=== PATIENT | female | born 1995 ===

== ENCOUNTER 2022-10-31 14:11 | Day surgery (SDC) | payer BC ==
[2022-10-31 14:40] VITALS: BMI 38.9
[2022-10-31] MEDS ORDERED: Acetaminophen 500 MG TAB PO SCH (15:30)
[2022-10-31 15:50] LABS: #Basophils 0.1 10x3/uL (0.0-0.2); #Eosinphils 0.3 10x3/uL (0.0-0.5); #Monocytes 0.4 10x3/uL (0.0-1.1); #Neutrophils 5.9 10x3/uL (1.5-8.4); %Basophils 0.6 % (0.0-2.0); %Eosinophils 4.1 % (0.0-6.0); %Lymphocytes 18.4 % (18.0-47.0); %Monocytes 4.7 % (0.0-10.0); %Neutrophils 71.6 % (40.0-75.0); Hematocrit 33.2 % (34.9-44.5); Hemoglobin 10.8 g/dL (12.0-15.5); Mean Corpuscular HGB CONC 32.5 g/dL (32.0-36.0); Mean Corpuscular Hemoglobin 28.1 pg (27.0-33.0); Mean Corpuscular Volume 86.2 fl (81.6-98.3); Mean Platelet Volume 11.6 fl (7.4-10.4); Platelet Count 223 10x3/uL (150-450); RBC Distribution Width 15.8 % (11.5-14.5); Red Blood Cell (RBC) Count 3.85 10x6/uL (3.90-5.03); White Blood Cell (WBC) Count 8.3 10x3/uL (3.5-10.5)
[2022-10-31 16:04] LABS: ALT (SGPT) 27 U/L (8-55); AST (SGOT) 40 U/L (5-34); Albumin 3.5 g/dL (3.5-5.0); Alkaline Phosphatase 73 U/L (40-110); Anion Gap 15 mmol/L (10-20); BUN (Urea Nitrogen) 4 mg/dL (7.0-18.7); Bilirubin, Total 0.4 mg/dL (0.2-1.2); Calc. Creatinine Clearance 209 mL/min (70-130); Calcium 8.7 mg/dL (7.8-10.44); Carbon Dioxide 20 mmol/L (22-29); Chloride 105 mmol/L (98-107); Estimated GFR 129; Globulin 3.3 g/dL (2.4-3.5); Glucose 84 mg/dL (70-105); Potassium 3.7 mmol/L (3.5-5.1); Protein, Total 6.8 g/dL (6.0-8.3); Sodium 136 mmol/L (136-145)
[2022-10-31 16:16] LABS: Bilirubin Neg (Negative); Blood, Urine Negative (Negative); Clarity Clear (Clear); Glucose, Urine (Dipstick) Normal (Negative); Ketone, Urine 50 mg/dL (Negative); Leukocyte Negative (Negative); Nitrite Negative (Negative); Protein, Urine (Dipstick) 15 mg/dl (Neg-Trace); Specific Gravity, Urine 1.005 (1.005-1.030); Urobilinogen Normal mg/dL (Less than 2)
[2022-10-31 16:23] LABS: CAUTI Indications for Culture Pelvic or flank pain; RBC/HPF 0-3 HPF (0-3); Squamous Epithelial 0-3 HPF (0-3); WBC/HPF 0-3 HPF (0-3)
[2022-10-31 16:24] LABS: Bacteria/HPF Rare-Few HPF (None Seen); Urine Culture Reflex No No
== END 2022-10-31 17:25 | disposition home or self-care (01) ==
LOC: CSHLD/OP 14:11
PROVIDERS: ATTEND Obstetrics & Gynecology
DX: R10.31 Right lower quadrant pain (principal); O99.891 Other specified diseases and conditions complicating pregnancy; O99.283 Endocrine, nutritional and metabolic diseases complicating pregnancy, third trimester; E86.0 Dehydration; O99.513 Diseases of the respiratory system complicating pregnancy, third trimester; J30.9 Allergic rhinitis, unspecified; Z3A.30 30 weeks gestation of pregnancy; Z90.49 Acquired absence of other specified parts of digestive tract; Z79.899 Other long term (current) drug therapy
CPT/HCPCS: 36415; 76857; 80053; 81001; 85025; 99283

== ENCOUNTER 2023-01-04 12:07 | Inpatient (IN) | payer BC ==
[2023-01-04 13:19] VITALS: BMI 40.4
[2023-01-04] MEDS ORDERED: fentaNYL/Ropivacaine Epidural 100 ML ONE (13:51)
[2023-01-04 13:56] LABS: Hematocrit 31.6 % (34.9-44.5); Hemoglobin 10.2 g/dL (12.0-15.5); Mean Corpuscular HGB CONC 32.3 g/dL (32.0-36.0); Mean Corpuscular Hemoglobin 26.4 pg (27.0-33.0); Mean Corpuscular Volume 81.7 fl (81.6-98.3); Platelet Count 177 10x3/uL (150-450); RBC Distribution Width 17.5 % (11.5-14.5); Red Blood Cell (RBC) Count 3.87 10x6/uL (3.90-5.03); White Blood Cell (WBC) Count 8.3 10x3/uL (3.5-10.5)
[2023-01-04 14:21] LABS: HBSAg Index 0.19 S/CO (0-0.99); Hep B Surf Ag - L&D Non-Reactive S/CO (NonReactive)
[2023-01-04 14:23] LABS: Syphilis Antibody Nonreactive (Nonreactive); Syphilis Antibody Index 0.02 S/CO (<1.00 Non-Reactive)
[2023-01-04] MEDS ORDERED: Naloxone HCl 0.4 mg/ml Vial IVP PRN ×2 (14:37)
[2023-01-04] MEDS ORDERED: Lactated Ringer's 500 ML IV PRN (14:37)
[2023-01-04] MEDS ORDERED: diphenhydrAMINE 50 MG/ML VIAL IVP PRN (14:37)
[2023-01-04] MEDS ORDERED: Ondansetron PF 4 MG/2 ML Vial IVP PRN (14:37)
[2023-01-04] MEDS ORDERED: Moisturizing Cream (Eucerin) 113 GM JAR TOP PRN (14:37)
[2023-01-04] MEDS ORDERED: ePHEDrine Sulfate 50 MG/10 ML VIAL SLOW IVP PRN (14:37)
[2023-01-04] MEDS ORDERED: Acetaminophen 325 MG TAB PO PRN (14:37)
[2023-01-04] MEDS ORDERED: Promethazine HCl 25 MG/ML VIAL IM PRN (14:37)
[2023-01-04] MEDS ORDERED: fentaNYL 2 mcg/Ropivacaine 0.2% Epidural 100 ML CADD EPIDURAL SCH (14:45)
[2023-01-04] MEDS ORDERED: Communication Order-Pharmacy FS SCH (14:45)
[2023-01-04] MEDS ORDERED: Oxytocin 30 units/NS 500 ML 500 ML IVPB SCH (15:45)
[2023-01-04] MEDS ORDERED: Methylergonovine 0.2 MG/ML VIAL IM PRN (15:45)
[2023-01-04] MEDS ORDERED: Oxytocin 30 units/NS 500 ML 500 ML IV SCH (15:45)
[2023-01-04] MEDS ORDERED: Ibuprofen 800 MG TAB PO PRN (15:45)
[2023-01-04] MEDS ORDERED: Carboprost 250 MCG/ML AMP IM PRN (15:45)
[2023-01-04] MEDS ORDERED: Misoprostol 200 MCG TAB RC PRN (15:45)
[2023-01-04] MEDS: Oxytocin 30 units/NS 500 ML 500 ML ONE ×2 (16:03→17:09)
[2023-01-04] MEDS ORDERED: hydrALAZINE 20 MG/ML VIAL SLOW IVP PRN (16:52)
[2023-01-04] MEDS ORDERED: Preparation H Ointment 28 GM TUBE PR PRN (16:52)
[2023-01-04] MEDS ORDERED: Bisacodyl 10 MG SUPP PR PRN (16:52)
[2023-01-04] MEDS ORDERED: Boostrix 0.5 ML (Tdap) VIAL (>/=7 yrs of age) IM ONE (16:52)
[2023-01-04] MEDS ORDERED: Milk Of Magnesia 30 ML UDCUP PO PRN (16:52)
[2023-01-04] MEDS ORDERED: Benzocaine-Menthol 82.5 ML CAN TOP PRN (16:52)
[2023-01-04] MEDS ORDERED: Lanolin Ointment 7 GM TUBE TOP PRN (16:52)
[2023-01-04] MEDS ORDERED: diphenhydrAMINE 25 MG CAP PO PRN (16:52)
[2023-01-04] MEDS: Ferrous Sulfate 325 MG TAB PO SCH (18:15)
[2023-01-04] MEDS: Docusate 100 MG CAP PO SCH (20:41)
[2023-01-04] MEDS: Ibuprofen 800 MG TAB PO SCH (21:36)
[2023-01-05] MEDS: Ibuprofen 800 MG TAB PO SCH ×2 (05:04→13:16)
[2023-01-05] MEDS: Ferrous Sulfate 325 MG TAB PO SCH ×2 (08:11→15:55)
[2023-01-05] MEDS: Docusate 100 MG CAP PO SCH (08:12)
[2023-01-05] MEDS ORDERED: Prenatal Vitamin 1 TAB PO SCH (09:00)
[2023-01-05 15:55] VITALS: BP 115/63; TEMP 98.7
== END 2023-01-05 19:30 | disposition home or self-care (01) | DRG 807 ==
LOC: CSHLD 12:07 → CSHPP 18:33
PROVIDERS: ADMIT Obstetrics & Gynecology; ATTEND Obstetrics & Gynecology
PROC: 10E0XZZ Delivery of Products of Conception, External Approach (ICD-10-PCS; principal; 2023-01-04)
DX: O80 Encounter for full-term uncomplicated delivery (principal); Z37.0 Single live birth; Z3A.40 40 weeks gestation of pregnancy
CPT/HCPCS: 36415; 51702; 85027; 86780; 86850; 86900; 86901; 87340; J2590